=== PATIENT | female | born 1950 | race Caucasian/White ===

== ENCOUNTER 2016-09-09 10:40 | Emergency (ER) | payer MEDICARE, OTHER ==
[~2016-09-09] VITALS: Ht 157.5 cm; Wt 66.0 kg
[2016-09-09 10:44] VITALS: Ht 157.5 cm; Wt 66.0 kg
[2016-09-09] MEDS ORDERED: BENZ100C70 PO (12:04)
[2016-09-09] MEDS ORDERED: D-ME473S18 PO (12:04)
--- NOTE | 2016-09-09 14:46 | ERD ---
DATE OF SERVICE: 09/09/2016 HISTORY OF PRESENT ILLNESS: The patient is a 65-year-old female coming in complaining of a cough wi th runny nose and sore throat. Patient states she has had no fevers. She has had these symptoms fo r the last 10 days. She has been taking DayQuil, Nyquil with no alleviation of her symptoms. She d enies any vomiting, no chest pain, no shortness of breath, no abdominal pain, no change in urination or bowel movement. No sick contacts. MEDICAL HISTORY: Breast cancer. PAST SURGICAL HISTORY: Heart stent put in 7 years ago. SOCIAL HISTORY: Quit smoking 7 years ago. HOSPITALIZATIONS: Denies. REVIEW OF SYSTEMS: A 12-point review of systems was done. Refer to HPI for positives. All other s ystems were negative. PHYSICAL EXAMINATION VITAL SIGNS: Temperature is 99.1, pulse 71, blood pressure is 113/56, respiratory 18, O2 saturation 97% on room air. Pain intensity is 6/10. GENERAL: The patient is well-appearing, well-nourished, no acute distress. HEENT: Atraumatic. Conjunctivae are pink. Pupils equal, round, and reactive to light. There is no s cleral icterus. Tympanic membranes clear bilaterally. Oropharynx clear. No nystagmus or photophobia . NECK: C-spine is soft and supple. There is no meningismus. There is no cervical lymphadenopathy. No JVD. No bruits. No goiter. CHEST: Clear to auscultation bilaterally. There are no rales, wheezes or rhonchi. HEART: Regular rate and rhythm. No murmurs, clicks, rubs or gallops. No S3 or S4. ABDOMEN: Soft, nontender and nondistended. Good bowel sounds. No rebound or guarding. No gross edil tonitis. No gross organomegaly or masses. No Rollins sign or McBurney point tenderness. BACK: No midline or flank tenderness. SKIN: There is no apparent rash or petechia. The skin is warm and dry. DIAGNOSIS: Upper respiratory infection. MEDICAL DECISION MAKING: I have low suspicion for meningitis or sepsis. Low suspicion for bacteria l HEENT infection, low suspicion for acute abdomen. There is low suspicion for pneumonia. Patient' s exams are nonconcerning. Vital signs are stable. The patient's symptoms are likely associated wi th viral upper respiratory infection. DISCHARGE: The patient is discharged stable. Patient given a prescription for Phenergan DM and [place], told to follow up with primary care within 1 to 2 days for reevaluation. The patient was [place] d if symptoms progress or worsen to return to the ER. All other questions answered at time of disch arge. Discharge summary given at the time of departure. Patient understood and complied with plan. Dictated By: DELFINA ALEXANDRA/SHANTHI Conf#: [id number] DID#: [id number]
== END 2016-09-09 12:45 | disposition home or self-care (01) ==
LOC: FTE 10:40
DX: J06.9 Acute upper respiratory infection, unspecified (principal); Z85.3 Personal history of malignant neoplasm of breast; Z95.5 Presence of coronary angioplasty implant and graft; Z87.891 Personal history of nicotine dependence
CPT/HCPCS: 99284